=== PATIENT | male | born 1940 | race Caucasian/White ===

== ENCOUNTER 2018-02-23 13:40 | Observation (INO) | payer MEDICARE, OTHER ==
[2018-02-23 14:29] LABS: CHLORIDE,CL 107 mEq/L (98-106); SODIUM,NA 143 mEq/L (136-145)
[2018-02-23] MEDS ORDERED: Sodium Chloride 0.9% 10 ML Syringe FLUSH PRN (15:33)
[2018-02-23] MEDS ORDERED: Zolpidem 5 MG Tab PO PRN (15:33)
[2018-02-23] MEDS ORDERED: Ondansetron 4 MG Tab.DIS PO PRN (15:33)
--- NOTE | 2018-02-23 15:34 | EDM.PDOC ---
ED HPI GENERAL MEDICAL PROBLEM - General Chief Complaint: General Stated Complaint: POSSIBLE STROKE Time Seen by Provider: 02/23/18 14:10 Source of Information: Reports: Patient History Limitations: Reports: No Limitations - History of Present Illness INITIAL COMMENTS - FREE TEXT/NARRATIVE: Patient presents to ER with family with concerns of having a stroke. States around noon today, he was having blurry vision and dizziness. [place] like he was stumbling around some. Was concerned he was having a stroke so got in his car and drove to their place of business to get his . She felt like his speech was somewhat slurred and "he didn't seem right". Had a CVA in the past, symptoms at that time were slurred speech and facial drooping. On arrival to the ER, continued to seem off balance, speech a bit slurred but answered all questions appropriately. Labs and stroke protocol started. Patient has history of atrial fib. Currently on Coumadin and metoprolol for that. Is compliant with his meds. Onset: Today, Sudden Duration: Hour(s): Location: Reports: Generalized Severity: Mild Associated Symptoms: Denies: Confusion, Chest Pain, Fever/Chills, Loss of Appetite, Nausea/Vomiting, Shortness of Breath, Weakness - Related Data Allergies Allergy/AdvReac Type Severity Reaction Status Date / Time codeine Allergy Cannot Verified 02/23/18 13:55 Remember Home Meds: Home Meds Metoprolol Tartrate 25 mg PO BID 05/11/14 [History] Warfarin [Coumadin] 4 mg PO DAILY 05/11/14 [History] Zolpidem [Ambien] 10 mg PO BEDTIME PRN 05/11/14 [History] amLODIPine/Benazepril [Lotrel 5-10 MG] 1 cap PO DAILY 05/11/14 [History] Aspirin [Adult Low Dose Aspirin EC] 81 mg PO DAILY 11/08/15 [History] Past Medical History 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 Denies: Fever, Chills, Malaise, Decreased Appetite HEENT: Reports: Vertigo, Vision Change Respiratory: Denies: Shortness of Breath, Cough Cardiovascular: Denies: Chest Pain, Edema Endocrine: Denies: Fatigue GI/Abdominal: Denies: Abdominal Pain, Hematochezia, Melena, Nausea, Vomiting : Reports: No Symptoms Musculoskeletal: Reports: No Symptoms Skin: Reports: No Symptoms Neurological: Reports: Dizziness, Headache, Difficulty Walking, Weakness, Change in Speech, Gait Disturbance. Denies: Confusion, Syncope ED EXAM, GENERAL - Physical Exam Exam: See Below Exam Limited By: No Limitations General Appearance: Alert, WD/WN, No Apparent Distress Eye Exam: Bilateral Eye: EOMI, PERRL Ears: Normal External Exam, Normal TMs Nose: Normal Inspection, Normal Mucosa, No Blood Throat/Mouth: Normal Inspection, Normal Oropharynx Head: Normocephalic Neck: Normal Inspection, Supple, Non-Tender Respiratory/Chest: No Respiratory Distress, Lungs Clear, Normal Breath Sounds Cardiovascular: Irregularly Irregular GI/Abdominal: Normal Bowel Sounds, Soft, Non-Tender Extremities: Normal Inspection, Normal Capillary Refill Neurological: Alert, Oriented, CN II-XII Intact, Abnormal Reflexes (patient has difficulty with MC, able to perform point to point discretion). No: Abnormal Gait Skin Exam: Warm, Dry Course - Vital Signs Last Recorded V/S: Last Vital Signs Temp 98.9 F 02/23/18 14:09 Pulse 85 02/23/18 14:09 Resp 18 02/23/18 14:09 BP 160/103 H 02/23/18 14:09 Pulse Ox 97 02/23/18 14:09 - Orders/Labs/Meds Orders: Active Orders 24 hr Category Date Time Status Head wo Cont [CT] Routine Exams 02/23/18 Taken UA W/MICROSCOPIC [URIN] Stat Lab 02/23/18 14:08 Received Labs: Laboratory Tests 02/23/18 02/23/18 02/23/18 Range/Units 14:08 14:08 14:08 WBC 7.3 (5.0-10.0) 10^3/uL RBC 5.10 (4.50-6.00) 10^6/uL Hgb 15.6 (14.0-18.0) g/dL Hct 47.3 (40.0-54.0) % MCV 92.7 (82.0-94.0) fL MCH 30.6 (27.0-32.0) pg MCHC 33.0 (33.0-38.0) g/dL RDW Coeff of Tabatha 14.7 (11.0-15.0) % Plt Count 137 L (150-400) 10^3/uL Neut % (Auto) 69.9 (35-85) % Lymph % (Auto) 19.5 (10-55) % [place] % (Auto) 8.2 (0-16) % Eos % (Auto) 1.9 (0-5) % Baso % (Auto) 0.5 (0-3) % Neut # (Auto) 5.13 (1.80-7.00) 10^3/uL Lymph # (Auto) 1.43 (1.00-4.80) 10^3/uL [place] # (Auto) 0.60 (0.00-0.80) 10^3/uL Eos # (Auto) 0.14 (0.00-0.45) 10^3/uL Baso # (Auto) 0.04 10^3/uL PT 33.3 H (9.7-12.3) SEC INR 3.51 H (0.92-1.18) APTT 41.5 H (23.2-32.3) SEC Sodium 143 (136-145) mEq/L Potassium 4.5 (3.5-5.0) mEq/L Chloride 107 H (98-106) mEq/L Carbon Dioxide 26 (21-32) mmol/L BUN 25 H (7-18) mg/dL Creatinine 1.0 (0.7-1.3) mg/dL Est Cr Clr Drug Dosing TNP Estimated GFR (MDRD) > 60 (>=60) mL/min Glucose 101 H (75-99) mg/dL Calcium 8.9 (8.4-10.1) mg/dL Creatine Kinase 78 (35-232) U/L Troponin I 0.086 H (0.00-0.06) ng/mL - Re-Assessments/Exams Free Text/Narrative Re-Assessment/Exam: 02/23/18 Labs noted. INR supratherapeutic. Will hold dose tonight and repeat INR in am. Troponin indeterminate. Will follow. Admit to observation for ongoing neurological and cardiac monitoring. Family aware and agree with plan. Patient was improved from my evaluation versus the nurse in the ER. Departure - Departure Time of Disposition: 15:00 Disposition: Refer to Observation Condition: Fair Clinical Impression: TIA (transient ischemic attack) - Discharge Information *PRESCRIPTION DRUG MONITORING PROGRAM REVIEWED*: No *COPY OF PRESCRIPTION DRUG MONITORING REPORT IN PATIENT PRESLEY: No - Problem List & Annotations (1) TIA (transient ischemic attack) SNOMED Code(s): 452618346 Code(s): G45.9 - TRANSIENT CEREBRAL ISCHEMIC ATTACK, UNSPECIFIED Status: Acute Priority: High Current Visit: Yes - Problem List Review Problem List Initiated/Reviewed/Updated: Yes - My Orders Last 24 Hours: My Active Orders 02/23/18 Head wo Cont [CT] Routine 02/23/18 14:08 UA W/MICROSCOPIC [URIN] Stat - Assessment/Plan Admission H&P: Please use this note as an admission H&P Last 24 Hours: My Active Orders 02/23/18 Head wo Cont [CT] Routine 02/23/18 14:08 UA W/MICROSCOPIC [URIN] Stat Plan: Admit to observation for neurologic and cardiac monitoring.
[2018-02-23] MEDS: Metoprolol Tartrate 25 MG Tab **OWN MED PO SCH (20:50)
[2018-02-23] MEDS ORDERED: ZOLPIDEM 10 MG PO PRN (21:11)
[2018-02-23] MEDS: ISOSORBIDE MONONITRATE 30 MG PO SCH (21:18)
[2018-02-23] MEDS: AMLODIPINE PO SCH (21:19)
[2018-02-23] MEDS: BENAZEPRIL PO SCH (21:19)
[2018-02-23] MEDS: Aspirin 81 MG Tab.EC PO SCH (21:19)
[2018-02-24 07:17] LABS: CHLORIDE,CL 108 mEq/L (98-106); SODIUM,NA 143 mEq/L (136-145)
[2018-02-24] MEDS: Metoprolol Tartrate 25 MG Tab **OWN MED PO SCH ×2 (07:42→19:29)
[2018-02-24] MEDS ORDERED: Lisinopril 10 MG Tab PO SCH (08:00)
[2018-02-24] MEDS ORDERED: amLODIPine 2.5 MG Tab PO SCH (08:00)
[2018-02-24] MEDS ORDERED: Aspirin 81 MG Tab.EC PO SCH (08:00)
[2018-02-24] MEDS ORDERED: WARFARIN 4 MG PO SCH (12:00)
--- NOTE | 2018-02-24 13:31 | PCM.PN ---
- General Info Date of Service: 02/24/18 Functional Status: Reports: Pain Controlled, Tolerating Diet, Ambulating, Urinating - Review of Systems General: Reports: No Symptoms HEENT: Reports: No Symptoms Pulmonary: Reports: No Symptoms Cardiovascular: Reports: No Symptoms Gastrointestinal: Reports: No Symptoms Genitourinary: Reports: No Symptoms Musculoskeletal: Reports: No Symptoms Skin: Reports: No Symptoms Neurological: Reports: No Symptoms. Denies: Confusion, Dizziness, Headache, Numbness, Paresthesia, Pre-Existing Deficit, Seizure, Syncope, Tingling, Tremors , Trouble Speaking, Difficulty Walking, Weakness, Change in Speech, Gait Disturbance Psychiatric: Reports: No Symptoms. Denies: Confusion - Patient Data Vitals - Most Recent: Last Vital Signs Temp 97.1 F 02/24/18 12:00 Pulse 66 02/24/18 12:00 Resp 16 02/24/18 12:00 BP 144/84 H 02/24/18 12:00 Pulse Ox 98 02/24/18 12:00 Weight - Most Recent: 194 lb 11.2 oz Lab Results Last 24 Hours: Laboratory Results - last 24 hr 02/23/18 02/23/18 02/23/18 Range/Units 14:08 14:08 14:08 WBC 7.3 (5.0-10.0) 10^3/uL RBC 5.10 (4.50-6.00) 10^6/uL Hgb 15.6 (14.0-18.0) g/dL Hct 47.3 (40.0-54.0) % MCV 92.7 (82.0-94.0) fL MCH 30.6 (27.0-32.0) pg MCHC 33.0 (33.0-38.0) g/dL RDW Coeff of Tabatha 14.7 (11.0-15.0) % Plt Count 137 L (150-400) 10^3/uL Neut % (Auto) 69.9 (35-85) % Lymph % (Auto) 19.5 (10-55) % [place] % (Auto) 8.2 (0-16) % Eos % (Auto) 1.9 (0-5) % Baso % (Auto) 0.5 (0-3) % Neut # (Auto) 5.13 (1.80-7.00) 10^3/uL Lymph # (Auto) 1.43 (1.00-4.80) 10^3/uL [place] # (Auto) 0.60 (0.00-0.80) 10^3/uL Eos # (Auto) 0.14 (0.00-0.45) 10^3/uL Baso # (Auto) 0.04 10^3/uL PT 33.3 H (9.7-12.3) SEC INR 3.51 H (0.92-1.18) APTT 41.5 H (23.2-32.3) SEC Sodium (136-145) mEq/L Potassium (3.5-5.0) mEq/L Chloride (98-106) mEq/L Carbon Dioxide (21-32) mmol/L BUN (7-18) mg/dL Creatinine (0.7-1.3) mg/dL Est Cr Clr Drug Dosing Estimated GFR (MDRD) (>=60) mL/min Glucose (75-99) mg/dL Calcium (8.4-10.1) mg/dL Creatine Kinase (35-232) U/L Troponin I (0.00-0.06) ng/mL C-Reactive Protein (0.2-0.8) mg/dL Urine Color Yellow (YELLOW) Urine Appearance Clear (CLEAR) Urine pH 6.5 (4.5-8.0) Ur Specific [place] 1.020 (1.003-1.020) Urine Protein Negative (NEGATIVE) mg/dL Urine Glucose (UA) Negative (NEGATIVE) mg/dL Urine Ketones Negative (NEGATIVE) mg/dL Urine Occult Blood Negative (NEGATIVE) Urine Nitrite Negative (NEGATIVE) Urine Bilirubin Negative (NEGATIVE) Urine Urobilinogen 0.2 (0.2-1.0) EU/dL Ur Leukocyte Esterase Negative (NEGATIVE) Urine RBC Not seen (0-5) /HPF Urine WBC Not seen (0-5) /HPF 02/23/18 02/23/18 02/24/18 Range/Units 14:08 19:55 06:52 WBC 5.8 (5.0-10.0) 10^3/uL RBC 4.54 (4.50-6.00) 10^6/uL Hgb 14.0 (14.0-18.0) g/dL Hct 42.5 (40.0-54.0) % MCV 93.6 (82.0-94.0) fL MCH 30.8 (27.0-32.0) pg MCHC 32.9 L (33.0-38.0) g/dL RDW Coeff of Tabatha 14.4 (11.0-15.0) % Plt Count 130 L (150-400) 10^3/uL Neut % (Auto) 64.4 (35-85) % Lymph % (Auto) 21.9 (10-55) % [place] % (Auto) 9.8 (0-16) % Eos % (Auto) 3.4 (0-5) % Baso % (Auto) 0.5 (0-3) % Neut # (Auto) 3.76 (1.80-7.00) 10^3/uL Lymph # (Auto) 1.28 (1.00-4.80) 10^3/uL [place]da # (Auto) 0.57 (0.00-0.80) 10^3/uL Eos # (Auto) 0.20 (0.00-0.45) 10^3/uL Baso # (Auto) 0.03 10^3/uL PT (9.7-12.3) SEC INR (0.92-1.18) APTT (23.2-32.3) SEC Sodium 143 (136-145) mEq/L Potassium 4.5 (3.5-5.0) mEq/L Chloride 107 H (98-106) mEq/L Carbon Dioxide 26 (21-32) mmol/L BUN 25 H (7-18) mg/dL Creatinine 1.0 (0.7-1.3) mg/dL Est Cr Clr Drug Dosing TNP Estimated GFR (MDRD) > 60 (>=60) mL/min Glucose 101 H (75-99) mg/dL Calcium 8.9 (8.4-10.1) mg/dL Creatine Kinase 78 (35-232) U/L Troponin I 0.086 H 0.084 H (0.00-0.06) ng/mL C-Reactive Protein (0.2-0.8) mg/dL Urine Color (YELLOW) Urine Appearance (CLEAR) Urine pH (4.5-8.0) Ur Specific [place] (1.003-1.020) Urine Protein (NEGATIVE) mg/dL Urine Glucose (UA) (NEGATIVE) mg/dL Urine Ketones (NEGATIVE) mg/dL Urine Occult Blood (NEGATIVE) Urine Nitrite (NEGATIVE) Urine Bilirubin (NEGATIVE) Urine Urobilinogen (0.2-1.0) EU/dL Ur Leukocyte Esterase (NEGATIVE) Urine RBC (0-5) /HPF Urine WBC (0-5) /HPF 02/24/18 02/24/18 Range/Units 06:52 06:52 WBC (5.0-10.0) 10^3/uL RBC (4.50-6.00) 10^6/uL Hgb (14.0-18.0) g/dL Hct (40.0-54.0) % MCV (82.0-94.0) fL MCH (27.0-32.0) pg MCHC (33.0-38.0) g/dL RDW Coeff of Tabatha (11.0-15.0) % Plt Count (150-400) 10^3/uL Neut % (Auto) (35-85) % Lymph % (Auto) (10-55) % [place] % (Auto) (0-16) % Eos % (Auto) (0-5) % Baso % (Auto) (0-3) % Neut # (Auto) (1.80-7.00) 10^3/uL Lymph # (Auto) (1.00-4.80) 10^3/uL Ida # (Auto) (0.00-0.80) 10^3/uL Eos # (Auto) (0.00-0.45) 10^3/uL Baso # (Auto) 10^3/uL PT 27.6 H (9.7-12.3) SEC INR 2.87 H (0.92-1.18) APTT (23.2-32.3) SEC Sodium 143 (136-145) mEq/L Potassium 3.9 (3.5-5.0) mEq/L Chloride 108 H (98-106) mEq/L Carbon Dioxide 28 (21-32) mmol/L BUN 21 H (7-18) mg/dL Creatinine 1.0 (0.7-1.3) mg/dL Est Cr Clr Drug Dosing 60.86 Estimated GFR (MDRD) > 60 (>=60) mL/min Glucose 96 (75-99) mg/dL Calcium 8.1 L (8.4-10.1) mg/dL Creatine Kinase (35-232) U/L Troponin I 0.079 H (0.00-0.06) ng/mL C-Reactive Protein 0.2 (0.2-0.8) mg/dL Urine Color (YELLOW) Urine Appearance (CLEAR) Urine pH (4.5-8.0) Ur Specific [place] (1.003-1.020) Urine Protein (NEGATIVE) mg/dL Urine Glucose (UA) (NEGATIVE) mg/dL Urine Ketones (NEGATIVE) mg/dL Urine Occult Blood (NEGATIVE) Urine Nitrite (NEGATIVE) Urine Bilirubin (NEGATIVE) Urine Urobilinogen (0.2-1.0) EU/dL Ur Leukocyte Esterase (NEGATIVE) Urine RBC (0-5) /HPF Urine WBC (0-5) /HPF Med Orders - Current: Current Medications Aspirin (Halfprin) 81 mg PO QPM [facility] Last Admin: 02/23/18 21:19 Dose: 81 mg Isosorbide Mononitrate (Imdur) 30 mg PO QPM [facility] Last Admin: 02/23/18 21:18 Dose: 30 mg Metoprolol Tartrate (Lopressor) 25 mg PO BID [facility] Last Admin: 02/24/18 07:42 Dose: 25 mg Amlodipine/Benazepril 5mg-10mg Own Med 0 each PO QPM [facility] Last Admin: 02/23/18 21:19 Dose: 1 each Zolpidem 10 Mg Own (Med) 0 each PO BEDTIME PRN PRN Reason: Sleep Warfarin 4mgOwn (Med) 1 each PO DAILY@1200 [facility] Last Admin: 02/24/18 12:02 Dose: 1 each Ondansetron HCl (Zofran Odt) 4 mg PO Q4H PRN PRN Reason: nausea, able to take PO Sodium Chloride (Saline Flush) 10 ml FLUSH ASDIRECTED PRN PRN Reason: Keep Vein Open Discontinued Medications Amlodipine Besylate (Norvasc) 5 mg PO DAILY [facility] Aspirin (Halfprin) 81 mg PO DAILY [facility] Lisinopril (Prinivil) 10 mg PO DAILY [facility] Zolpidem Tartrate (Ambien) 10 mg PO BEDTIME PRN PRN Reason: Sleep - Exam General: Alert, Oriented, Cooperative, No Acute Distress HEENT: Pupils Equal, Pupils Reactive, EOMI, Mucous Membr. Moist/[place] Neck: Supple, Trachea Midline, No JVD, No Thyromegaly Lungs: Clear to Auscultation, Normal Respiratory Effort Cardiovascular: Regular Rate, No Murmurs, Irregular Rhythm GI/Abdominal Exam: Normal Bowel Sounds, Soft, Non-Tender, No Organomegaly, No Distention, No Abnormal Bruit, No Mass, Pelvis Stable Back Exam: Normal Inspection, Full Range of Motion Extremities: Normal Inspection, Normal Range of Motion, Non-Tender, No Pedal Edema, Normal Capillary Refill Peripheral Pulses: 2+: Posterior Tibial (L), Posterior Tibial (R), Dorsalis Pedis (L), Dorsalis Pedis (R) Skin: Warm, Dry, Intact Neurological: No New Focal Deficit, Normal Gait, Normal Speech, Normal Tone, Strength Equal Bilateral, Reflexes Equal Bilateral, Sensation Intact, Cranial Nerves Intact Psy/Mental Status: Alert, Normal Affect, Normal Mood - Problem List Review Problem List Initiated/Reviewed/Updated: Yes - My Orders Last 24 Hours: My Active Orders 02/23/18 21:00 Aspirin [Halfprin] 81 mg PO QPM Isosorbide Mononitrate [Imdur] 30 mg PO QPM 02/23/18 21:15 Non-Formulary Medication [NF Drug] 0 each PO QPM 02/24/18 06:02 Up ad Lily [RC] .PRN 02/24/18 12:00 Non-Formulary Medication [NF Drug] 1 each PO DAILY@1200 02/25/18 05:00 BMP [BASIC METABOLIC PANEL,BMP] [CHEM] Routine CBC WITH AUTO DIFF [HEME] Routine INR,PT,PROTHROMBIN TIME [COAG] Routine - Plan Plan:: This patient is a 77 year old male that presented to the ER with weakness and dizziness yesterday in the ER. Patient was admitted for TIA that has completely resolved. The patient has not had symptoms since being here in the hospital. I will keep admitted until tomorrow and if remains asymptomatic I will discharge home. The patient labs yesterday were INR 3.51, Trop 0.086, then 0.084, 0.079, BUN 25, Chloride 107. Today labs are INR 2.87, BUN 21, Chloride 108. The patient coumadin was held yesterday, but I gave restarted today at 2mg PO QD. The patient is alert and oriented. No weaknesses general or unilateral. Patient stable.
[2018-02-24] MEDS: ISOSORBIDE MONONITRATE 30 MG PO SCH (19:28)
[2018-02-24] MEDS: BENAZEPRIL PO SCH (19:28)
[2018-02-24] MEDS: AMLODIPINE PO SCH (19:28)
[2018-02-24] MEDS: Aspirin 81 MG Tab.EC PO SCH (19:28)
[2018-02-25 07:19] LABS: CHLORIDE,CL 107 mEq/L (98-106); SODIUM,NA 141 mEq/L (136-145)
[2018-02-25] MEDS: Metoprolol Tartrate 25 MG Tab **OWN MED PO SCH (07:30)
[2018-02-25 07:31] VITALS: BP 124/73
--- NOTE | 2018-02-25 09:40 | PCM.DCSUM1 ---
Discharge Summary - Hospital Course HPI Initial Comments: This patient is a 77 year old male that was admitted on Monday for TIA that resolved. Patient over the weekend has been fully alert and oriented. He has not had any neurological deficits since being admitted. The patient has been up walking the hallways. He has no complaints. He reports he is ready to go home. Patient INR Monday was 3.51, Monday 2.87, today 2.37. I will discharge the patient home. I will not change his medication dosing. I discussed with the patient about since having a TIA, his increased risk chances of having a stroke , MS, or some type of cardiovascular event, or even in the future. He has voiced understanding of this. I will discharge the patient home today, he will need to see his PCP this week. I have ordered an out patient order for PT/INR on Monday02/28/18. Modified [place] Scale: No Symptoms at All Modified [place] Scale Score: 0 - Discharge Data Discharge Date: 02/25/18 Discharge Disposition: Home, Self-Care 01 Condition: Fair - Patient Instructions Diet: Heart Healthy Diet Activity: As Tolerated Driving: May Drive Today Showering/Bathing: May Shower Notify Provider of: Fever, Nausea and/or Vomiting Other/Special Instructions: Return for weakness, confusion, dizziness, or any other complaints. - Discharge Plan *PRESCRIPTION DRUG MONITORING PROGRAM REVIEWED*: No *COPY OF PRESCRIPTION DRUG MONITORING REPORT IN PATIENT PRESLEY: No Home Medications: Home Meds Metoprolol Tartrate 25 mg PO BID 05/11/14 [History] Warfarin [Coumadin] 4 mg PO BEDTIME 05/11/14 [History] Zolpidem [Ambien] 10 mg PO BEDTIME PRN 05/11/14 [History] amLODIPine/Benazepril [Lotrel 5-10 MG] 1 cap PO BEDTIME 05/11/14 [History] Aspirin [Adult Low Dose Aspirin EC] 81 mg PO BEDTIME 11/08/15 [History] Isosorbide Mononitrate [Isosorbide Mononitrate ER] 30 mg PO BEDTIME 02/23/18 [ History] Oxygen Therapy Mode: Nasal Cannula Patient Handouts: Stroke Prevention, [id number], Transient Ischemic Attack, [id number], Preventing Cerebrovascular Disease Forms: ED Department Discharge Referrals: PCP,Unknown [Primary Care Provider] - - Discharge Summary/Plan Comment DC Time >30 min.: No Discharge Summary/Plan Comment: Followup with your primary care provider this week Recheck PT/INR Monday02/28/2018 Continue all your home medications Return to the ER for worsening of condition or any emergent concerns such as chest pain, shortness of breath, headache, dizziness, weakness or any concerns - General Info Date of Service: 02/25/18 Functional Status: Reports: Pain Controlled - Review of Systems General: Reports: No Symptoms HEENT: Reports: No Symptoms Pulmonary: Reports: No Symptoms Cardiovascular: Reports: No Symptoms Gastrointestinal: Reports: No Symptoms Genitourinary: Reports: No Symptoms Musculoskeletal: Reports: No Symptoms Skin: Reports: No Symptoms Neurological: Reports: No Symptoms. Denies: Confusion, Dizziness, Headache, Numbness, Paresthesia, Pre-Existing Deficit, Seizure, Syncope, Tingling, Tremors , Trouble Speaking, Difficulty Walking, Weakness, Change in Speech, Gait Disturbance Psychiatric: Reports: No Symptoms - Patient Data Vitals - Most Recent: Last Vital Signs Temp 96.8 F 02/25/18 07:54 Pulse 64 02/25/18 07:54 Resp 20 02/25/18 07:54 BP 124/73 02/25/18 07:54 Pulse Ox 99 02/25/18 07:54 Weight - Most Recent: 194 lb 11.2 oz Lab Results - Last 24 hrs: Laboratory Results - last 24 hr 02/25/18 02/25/18 02/25/18 Range/Units 06:55 06:55 06:55 WBC 6.5 (5.0-10.0) 10^3/uL RBC 4.82 (4.50-6.00) 10^6/uL Hgb 15.0 (14.0-18.0) g/dL Hct 45.2 (40.0-54.0) % MCV 93.8 (82.0-94.0) fL MCH 31.1 (27.0-32.0) pg MCHC 33.2 (33.0-38.0) g/dL RDW Coeff of Tabatha 14.5 (11.0-15.0) % Plt Count 132 L (150-400) 10^3/uL Neut % (Auto) 65.2 (35-85) % Lymph % (Auto) 23.7 (10-55) % [place] % (Auto) 7.6 (0-16) % Eos % (Auto) 2.9 (0-5) % Baso % (Auto) 0.6 (0-3) % Neut # (Auto) 4.21 (1.80-7.00) 10^3/uL Lymph # (Auto) 1.53 (1.00-4.80) 10^3/uL [place] # (Auto) 0.49 (0.00-0.80) 10^3/uL Eos # (Auto) 0.19 (0.00-0.45) 10^3/uL Baso # (Auto) 0.04 10^3/uL PT 23.1 H (9.7-12.3) SEC INR 2.37 H (0.92-1.18) Sodium 141 (136-145) mEq/L Potassium 3.9 (3.5-5.0) mEq/L Chloride 107 H (98-106) mEq/L Carbon Dioxide 28 (21-32) mmol/L BUN 20 H (7-18) mg/dL Creatinine 1.0 (0.7-1.3) mg/dL Est Cr Clr Drug Dosing 60.86 mL/min Estimated GFR (MDRD) > 60 (>=60) mL/min Glucose 101 H (75-99) mg/dL Calcium 8.5 (8.4-10.1) mg/dL Med Orders - Current: Current Medications Aspirin (Halfprin) 81 mg PO QPM [facility] Last Admin: 02/24/18 19:28 Dose: 81 mg Isosorbide Mononitrate (Imdur) 30 mg PO QPM [facility] Last Admin: 02/24/18 19:28 Dose: 30 mg Metoprolol Tartrate (Lopressor) 25 mg PO BID [facility] Last Admin: 02/25/18 07:30 Dose: 25 mg Amlodipine/Benazepril 5mg-10mg Own Med 0 each PO QPM [facility] Last Admin: 02/24/18 19:28 Dose: 1 each Zolpidem 10 Mg Own (Med) 0 each PO BEDTIME PRN PRN Reason: Sleep Last Admin: 02/24/18 22:19 Dose: 1 each Warfarin 4mgOwn (Med) 1 each PO DAILY@1200 [facility] Last Admin: 02/24/18 12:02 Dose: 1 each Ondansetron HCl (Zofran Odt) 4 mg PO Q4H PRN PRN Reason: nausea, able to take PO Sodium Chloride (Saline Flush) 10 ml FLUSH ASDIRECTED PRN PRN Reason: Keep Vein Open Discontinued Medications Amlodipine Besylate (Norvasc) 5 mg PO DAILY [facility] Aspirin (Halfprin) 81 mg PO DAILY [facility] Lisinopril (Prinivil) 10 mg PO DAILY [facility] Zolpidem Tartrate (Ambien) 10 mg PO BEDTIME PRN PRN Reason: Sleep - Exam General: Reports: Alert, Oriented, Cooperative, No Acute Distress Neck: Reports: Supple, Trachea Midline, No JVD, No Thyromegaly Lungs: Reports: Clear to Auscultation, Normal Respiratory Effort Cardiovascular: Reports: Regular Rate, Irregular Rhythm (a-fib controlled. Chronic, rate 80 currently, he does go into 40-50s with sleeping, but once awake rebounds in 60-80 range. No symptoms. ) GI/Abdominal Exam: Normal Bowel Sounds, Soft, Non-Tender, No Organomegaly, No Distention, No Abnormal Bruit, No Mass, Pelvis Stable (Male) Exam: Deferred Rectal (Males) Exam: Deferred Back Exam: Reports: Normal Inspection, Full Range of Motion Extremities: Normal Inspection, Normal Range of Motion, Non-Tender, No Pedal Edema, Normal Capillary Refill Skin: Reports: Warm, Dry, Intact Neurological: Reports: No New Focal Deficit, Normal Gait, Normal Speech, Normal Tone, Strength Equal Bilateral, Reflexes Equal Bilateral, Sensation Intact, Cranial Nerves Intact Psy/Mental Status: Reports: Alert, Normal Affect, Normal Mood
== END 2018-02-25 09:49 | disposition home or self-care (01) ==
LOC: CC.ED 13:40 → UNDOADMOB 14:50 → CC.MS 14:50
PROVIDERS: ADMIT Physician Assistant Medical; ATTEND Family Medicine
DX: G45.9 Transient cerebral ischemic attack, unspecified (principal); I48.91 Unspecified atrial fibrillation; Z79.82 Long term (current) use of aspirin; Z79.01 Long term (current) use of anticoagulants; Z79.899 Other long term (current) drug therapy; Z88.5 Allergy status to narcotic agent
CPT/HCPCS: 36415; 70450; 80048; 81001; 82550; 84484; 85025; 85610; 85730; 86140; 93005; 93010; 99217; 99220; 99225; 99285; A9270; G0378

== ENCOUNTER 2018-06-24 13:25 | Emergency (ER) | payer MEDICARE, OTHER ==
[2018-06-24] MEDS ORDERED: Tenecteplase 50 MG Kit ONE (13:28)
[2018-06-24] MEDS ORDERED: Aspirin 81 MG Tab.Chew PO ONE (13:29)
[2018-06-24] MEDS ORDERED: Nitroglycerin 0.4 MG Tab.SL SL ONE ×2 (13:36→13:47)
[2018-06-24] MEDS ORDERED: Nitroglycerin/D5W 25 MG/250 ML BOTTLE ONE (14:00)
[2018-06-24 14:02] LABS: CHLORIDE,CL 106 mEq/L (98-106); SODIUM,NA 144 mEq/L (136-145)
[2018-06-24] MEDS ORDERED: Nitroglycerin/D5W 25 MG/250 ML BOTTLE IV SCH (14:17)
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
[2018-06-24 15:03] VITALS: BP 149/93
== END 2018-06-24 15:22 ==
LOC: CC.ED 13:25
DX: I51.3 Intracardiac thrombosis, not elsewhere classified (principal); Z88.5 Allergy status to narcotic agent
CPT/HCPCS: 36415; 71045; 80048; 82550; 83615; 84484; 85025; 85610; 93005; 96365; 99285; A9270; J3490

== ENCOUNTER 2019-12-05 15:51 | Emergency (ER) | payer MEDICARE ==
[2019-12-05 16:35] LABS: CHLORIDE,CL 104 mEq/L (98-106); SODIUM,NA 138 mEq/L (136-145)
[2019-12-05 17:03] VITALS: PULSE 78
[2019-12-05] MEDS ORDERED: cloNIDine 0.1 MG Tab PO ONE (17:15)
--- NOTE | 2019-12-05 17:17 | EDM.PDOC ---
ED HPI GENERAL MEDICAL PROBLEM - General Chief Complaint: Headache Stated Complaint: Headache Time Seen by Provider: 12/05/19 16:00 Source of Information: Reports: Patient, EMS, RN History Limitations: Reports: No Limitations - History of Present Illness INITIAL COMMENTS - FREE TEXT/NARRATIVE: Pt presents with complaints of headache and not feeling right. Denies any unilateral weakness or facial drooping. Concerned that he was having a TIA. States that it started yesterday and that he has had a terrible headache since then. When EMS picked him up he did not have any neuro deficients. BP was elevated when they picked him up. BP has been elevated since being up. He currently states that his headache is much improved. He is anxious. No weakness noted. No confusion. no change in speech. He denies that he has not missed any doses of his BP meds. Onset: Gradual Onset Date: 12/04/19 Location: Reports: Head, Generalized Associated Symptoms: Denies: Confusion, Chest Pain, Nausea/Vomiting, Shortness of Breath Treatments CONSTRUCTION SAFETY MANAGER: Reports: EKG, IV/IO - Related Data Allergies Allergy/AdvReac Type Severity Reaction Status Date / Time codeine Allergy Cannot Verified 12/05/19 16:11 Remember Home Meds: Home Meds Metoprolol Tartrate 25 mg PO BID 05/11/14 [History] Warfarin [Coumadin] 4 mg PO BEDTIME 05/11/14 [History] Zolpidem [Ambien] 10 mg PO BEDTIME PRN 05/11/14 [History] amLODIPine/Benazepril [Lotrel 5-10 MG] 1 cap PO BEDTIME 05/11/14 [History] Aspirin [Adult Low Dose Aspirin EC] 81 mg PO BEDTIME 11/08/15 [History] Isosorbide Mononitrate [Isosorbide Mononitrate ER] 30 mg PO BEDTIME 02/23/18 [History] Past Medical History Cardiovascular History: Reports: Afib, Bypass Neurological History: Reports: CVA, TIA - Past Surgical History GI Surgical History: Reports: Hernia Repair/Other Dermatological Surgical History: Reports: Skin Biopsy Social & Family History - Family History Family Medical History: Noncontributory - Tobacco Use Smoking Status *Q: Never Smoker Second Hand Smoke Exposure: No - Caffeine Use Caffeine Use: Reports: Coffee - Recreational Drug Use Recreational Drug Use: No ED ROS GENERAL - Review of Systems Review Of Systems: See Below Constitutional: Reports: Weakness. Denies: Fever, Chills, Fatigue HEENT: Reports: No Symptoms Respiratory: Reports: No Symptoms Cardiovascular: Reports: No Symptoms GI/Abdominal: Reports: No Symptoms : Reports: No Symptoms Musculoskeletal: Reports: No Symptoms Skin: Reports: No Symptoms Neurological: Reports: Headache. Denies: Confusion, Dizziness, Numbness, Synco pe, Tingling, Trouble Speaking, Difficulty Walking, Weakness, Change in Speech - Physical Exam Exam: See Below Exam Limited By: No Limitations General Appearance: Alert, WD/WN, No Apparent Distress Ears: Normal External Exam, Normal TMs Nose: Normal Inspection Throat/Mouth: Normal Inspection, Normal Oropharynx Head Exam: Atraumatic, Normocephalic Neck: Normal Inspection, Supple, Non-Tender Respiratory/Chest: No Respiratory Distress, Lungs Clear, Normal Breath Sounds Cardiovascular: No Edema, Irregularly Irregular GI/Abdominal: Normal Bowel Sounds, Soft, Non-Tender Neuro Exam (Abbreviated): Alert, Oriented, CN II-XII Intact Extremities: Normal Inspection Skin Exam: Warm, Dry, Intact Course - Vital Signs Last Recorded V/S: Last Vital Signs Temp 97.4 F 12/05/19 15:51 Pulse 78 12/05/19 17:02 Resp 16 12/05/19 15:51 BP 147/103 H 12/05/19 17:02 Pulse Ox 95 12/05/19 15:51 - Orders/Labs/Meds Orders: Active Orders 24 hr Category Date Time Status Head wo Cont [CT] Stat Exams 12/05/19 15:58 Taken Labs: Laboratory Tests 12/05/19 12/05/19 12/05/19 Range/Units 16:10 16:10 16:10 WBC 6.9 (5.0-10.0) 10^3/uL RBC 4.93 (4.50-6.00) 10^6/uL Hgb 15.4 (14.0-18.0) g/dL Hct 44.9 (40.0-54.0) % MCV 91.1 (82.0-94.0) fL MCH 31.2 (27.0-32.0) pg MCHC 34.3 (33.0-38.0) g/dL RDW Coeff of Tabatha 14.3 (11.0-15.0) % Plt Count 136 L (150-400) 10^3/uL Neut % (Auto) 64.7 (35-85) % Lymph % (Auto) 24.1 (10-55) % [place] % (Auto) 9.0 (0-16) % Eos % (Auto) 1.9 (0-5) % Baso % (Auto) 0.3 (0-3) % Neut # (Auto) 4.45 (1.80-7.00) 10^3/uL Lymph # (Auto) 1.66 (1.00-4.80) 10^3/uL [place] # (Auto) 0.62 (0.00-0.80) 10^3/uL Eos # (Auto) 0.13 (0.00-0.45) 10^3/uL Baso # (Auto) 0.02 10^3/uL PT 22.1 H (9.7-12.3) SEC INR 2.21 H (0.92-1.18) Sodium 138 (136-145) mEq/L Potassium 4.3 (3.5-5.0) mEq/L Chloride 104 (98-106) mEq/L Carbon Dioxide 26 (21-32) mmol/L BUN 19 H (7-18) mg/dL Creatinine 1.1 (0.7-1.3) mg/dL Est Cr Clr Drug Dosing 54.45 mL/min Estimated GFR (MDRD) > 60 (>=60) mL/min Glucose 100 H (75-99) mg/dL Calcium 8.7 (8.4-10.1) mg/dL Magnesium 2.2 (1.8-2.4) mg/dL Total Bilirubin 0.7 (0.0-1.0) mg/dL AST 23 (15-37) U/L ALT 22 (12-78) U/L Alkaline Phosphatase 77 (46-116) U/L Troponin I 0.080 H (0.00-0.06) ng/mL Total Protein 7.3 (6.4-8.2) g/dL Albumin 3.7 (3.4-5.0) g/dL Urine Color (YELLOW) Urine Appearance (CLEAR) Urine pH (4.5-8.0) Ur Specific [place] (1.003-1.020) Urine Protein (NEGATIVE) mg/dL Urine Glucose (UA) (NEGATIVE) mg/dL Urine Ketones (NEGATIVE) mg/dL Urine Occult Blood (NEGATIVE) Urine Nitrite (NEGATIVE) Urine Bilirubin (NEGATIVE) Urine Urobilinogen (0.2-1.0) EU/dL Ur Leukocyte Esterase (NEGATIVE) Urine RBC (0-5) /HPF Urine WBC (0-5) /HPF Ur Epithelial Cells (NOT SEEN) /HPF 12/05/19 Range/Units 16:45 WBC (5.0-10.0) 10^3/uL RBC (4.50-6.00) 10^6/uL Hgb (14.0-18.0) g/dL Hct (40.0-54.0) % MCV (82.0-94.0) fL MCH (27.0-32.0) pg MCHC (33.0-38.0) g/dL RDW Coeff of Tabatha (11.0-15.0) % Plt Count (150-400) 10^3/uL Neut % (Auto) (35-85) % Lymph % (Auto) (10-55) % [place] % (Auto) (0-16) % Eos % (Auto) (0-5) % Baso % (Auto) (0-3) % Neut # (Auto) (1.80-7.00) 10^3/uL Lymph # (Auto) (1.00-4.80) 10^3/uL [place] # (Auto) (0.00-0.80) 10^3/uL Eos # (Auto) (0.00-0.45) 10^3/uL Baso # (Auto) 10^3/uL PT (9.7-12.3) SEC INR (0.92-1.18) Sodium (136-145) mEq/L Potassium (3.5-5.0) mEq/L Chloride (98-106) mEq/L Carbon Dioxide (21-32) mmol/L BUN (7-18) mg/dL Creatinine (0.7-1.3) mg/dL Est Cr Clr Drug Dosing mL/min Estimated GFR (MDRD) (>=60) mL/min Glucose (75-99) mg/dL Calcium (8.4-10.1) mg/dL Magnesium (1.8-2.4) mg/dL Total Bilirubin (0.0-1.0) mg/dL AST (15-37) U/L ALT (12-78) U/L Alkaline Phosphatase (46-116) U/L Troponin I (0.00-0.06) ng/mL Total Protein (6.4-8.2) g/dL Albumin (3.4-5.0) g/dL Urine Color Yellow (YELLOW) Urine Appearance Clear (CLEAR) Urine pH 6.0 (4.5-8.0) Ur Specific [place] >= 1.030 H (1.003-1.020) Urine Protein Negative (NEGATIVE) mg/dL Urine Glucose (UA) Negative (NEGATIVE) mg/dL Urine Ketones Negative (NEGATIVE) mg/dL Urine Occult Blood Trace-intact H (NEGATIVE) Urine Nitrite Negative (NEGATIVE) Urine Bilirubin Negative (NEGATIVE) Urine Urobilinogen 0.2 (0.2-1.0) EU/dL Ur Leukocyte Esterase Trace H (NEGATIVE) Urine RBC 0-5 (0-5) /HPF Urine WBC 0-5 (0-5) /HPF Ur Epithelial Cells Occasional H (NOT SEEN) /HPF - Re-Assessments/Exams Free Text/Narrative Re-Assessment/Exam: 12/05/19 17:02- CT is normal. He states that he feels better and headache is better. BP remains elevated. Will give clonidine to bring down BP. He takes all his meds at bedtime so has not taken any today. Departure - Departure Time of Disposition: 17:42 Disposition: Home, Self-Care 01 Condition: Good Clinical Impression: Headache Qualifiers: Headache type: unspecified Headache chronicity pattern: acute headache Intractability: not intractable Qualified Code(s): R51 - Headache - Discharge Information *PRESCRIPTION DRUG MONITORING PROGRAM REVIEWED*: Not Applicable *COPY OF PRESCRIPTION DRUG MONITORING REPORT IN PATIENT [place]: Not Applicable Referrals: Christian Becker MD [Primary Care Provider] - Additional Instructions: will take BP meds tonight as usual. Will increase Lotrel to 5/20 daily. Follow up appt with Dr. Becker on Monday. If symptoms change return to the ER. Sepsis Event Note (ED) - Evaluation Sepsis Screening Result: No Definite Risk - Focused Exam Vital Signs: Vital Signs Temp Pulse Resp BP Pulse Ox 12/05/19 17:02 78 147/103 H 12/05/19 15:51 97.4 F 77 16 163/98 H 95 - Problem List & Annotations (1) Headache SNOMED Code(s): 49611129 Code(s): R51 - HEADACHE Status: Acute Current Visit: Yes Qualifiers: Headache type: unspecified Headache chronicity pattern: acute headache Intractability: not intractable Qualified Code(s): R51 - Headache - Problem List Review Problem List Initiated/Reviewed/Updated: Yes - My Orders Last 24 Hours: My Active Orders 12/05/19 15:58 Head wo Cont [CT] Stat - Assessment/Plan Last 24 Hours: My Active Orders 12/05/19 15:58 Head wo Cont [CT] Stat
[2019-12-05 17:37] VITALS: BP 143/89
== END 2019-12-05 17:59 | disposition home or self-care (01) ==
LOC: CC.ED 15:51
DX: R51 Headache (principal); I48.91 Unspecified atrial fibrillation; Z86.73 Personal history of transient ischemic attack (TIA), and cerebral infarction without residual deficits; Z88.5 Allergy status to narcotic agent; Z79.01 Long term (current) use of anticoagulants; Z79.82 Long term (current) use of aspirin; Z79.899 Other long term (current) drug therapy
CPT/HCPCS: 36415; 70450; 80053; 81001; 83735; 84484; 85025; 85610; 93005; 99284; 99284-25; A9270-GY

== ENCOUNTER 2022-11-05 17:00 | Emergency (ER) | payer MEDICARE ==
[2022-11-05] MEDS: Aspirin 81 MG Tab.Chew PO ONE (17:37)
[2022-11-05 17:47] LABS: BASOPHILS ABSOLUTE AUTO 0.04 10^3/uL (0.00-0.50); BASOPHILS PERCENT AUTO 0.7 % (0-1); EOSINOPHILS ABSOLUTE AUTO 0.06 10^3/uL (0.00-1.50); HEMATOCRIT 40.6 % (42.0-52.0); HEMOGLOBIN 13.7 g/dL (14.0-18.0); IMMATURE GRAN ABSOLUTE AUTO 0.01 10^3/uL (0.00-0.49); IMMATURE GRAN PERCENT AUTO 0.2 % (0.0-4.9); LYMPHOCYTES ABSOLUTE AUTO 1.18 10^3/uL (0.60-5.00); MEAN CORPUSCULAR HEMOGLOBIN 31.3 pg (27.0-32.0); MEAN CORPUSCULAR HGB CONC 33.7 g/dL (32.0-36.0); MEAN CORPUSCULAR VOLUME 92.7 fL (83.0-97.0); MONOCYTES ABSOLUTE AUTO 0.58 10^3/uL (0.00-1.50); MONOCYTES PERCENT AUTO 9.8 % (0-10); NEUTROPHILS ABSOLUTE AUTO 4.04 x10^3/uL (1.80-8.00); NEUTROPHILS PERCENT AUTO 68.3 % (41-71); PLATELET COUNT,PLT 127 10^3/uL (150-400); RED BLOOD CELL COUNT 4.38 x10^6/uL (4.50-6.00); WHITE BLOOD CELL COUNT,WBC 5.9 10^3/uL (4.0-11.0)
[2022-11-05 18:03] LABS: ALBUMIN 3.4 g/dL (3.4-5.0); BILIRUBIN TOTAL 0.7 mg/dL (0.0-1.0); C-REACTIVE PROTEIN 0.15 mg/dL (<=0.30); CALCIUM 8.7 mg/dL (8.4-10.1); CREATININE 0.9 mg/dL (0.7-1.3); EST CRCL DRUG DOSING (CG) 64.37 mL/min; MAGNESIUM 2.2 mg/dL (1.8-2.4); POTASSIUM,K 4.4 mEq/L (3.5-5.0); PROTEIN TOTAL,TP 6.7 g/dL (6.4-8.2)
[2022-11-05 18:34] LABS: INR 2.06 (0.92-1.18); PROTHROMBIN TIME 20.8 SEC (9.3-11.3)
[2022-11-05] MEDS: Heparin Sodium 5,000 Units/ML Vial IVPUSH ONE (18:55)
[2022-11-05] MEDS: Heparin Sodium/0.45% NaCl 500 ML IV SCH (19:02)
[2022-11-05] MEDS: atorvaSTATin 20 MG Tab PO ONE (19:06)
[2022-11-05 20:34] VITALS: BP 133/83; PULSE 76
== END 2022-11-05 20:00 ==
LOC: CC.ED 17:00
DX: I21.4 Non-ST elevation (NSTEMI) myocardial infarction (principal); I48.91 Unspecified atrial fibrillation; R77.8 Other specified abnormalities of plasma proteins; R79.89 Other specified abnormal findings of blood chemistry; Z79.01 Long term (current) use of anticoagulants; Z88.5 Allergy status to narcotic agent; Z95.1 Presence of aortocoronary bypass graft; Z86.73 Personal history of transient ischemic attack (TIA), and cerebral infarction without residual deficits
CPT/HCPCS: 36415; 71045; 80053; 83735; 83880; 84484; 85025; 85610; 85730; 86140; 93005; 93010; 96365; 96376; 99284; 99285-25; A9270-GY; J1644